=== PATIENT | male | born 1955 | race Caucasian/White ===

== ENCOUNTER 2019-08-19 19:44 | Emergency (ER) | payer MEDICAID ==
[~2019-08-19] VITALS: Ht 177.8 cm; Wt 77.1 kg
[~2019-08-19 19:44] MED LIST: IBUPROFEN600 M1 ORAL; VIBRAMYCIN100 MG ORAL
[2019-08-19 20:04] VITALS: BP 135/72
[2019-08-19] MEDS ORDERED: Morphine Sulfate 4mg/ml Inj (IV USE ONLY) IVP ONE (20:30)
[2019-08-19] MEDS ORDERED: Ketorolac 30mg Inj IV ONE (20:30)
[2019-08-19 21:20] LABS: BASOPHILS % (AUTO) 1.5 % (0.0-2.0); EOSINOPHILS % (AUTO) 1.7 % (0.0-3.0); HEMATOCRIT 39.5 % (42.0-52.0); HEMOGLOBIN 13.2 G/DL (14.2-18.0); LYMPHOCYTES % (AUTO) 20.3 % (20.0-45.0); MEAN CORPUSCULAR VOLUME 88 FL (80-99); NEUTROPHILS % (AUTO) 66.5 % (45.0-75.0); PLATELET COUNT 299 K/UL (150-450); RED BLOOD COUNT 4.48 M/UL (4.70-6.10); RED CELL DISTRIBUTION WIDTH 12.2 % (11.6-14.8); WHITE BLOOD COUNT 7.9 K/UL (4.8-10.8)
[2019-08-19 21:31] LABS: ANION GAP 8 mmol/L (5-15); BLOOD UREA NITROGEN 17 mg/dL (7-18); CALCIUM 8.2 MG/DL (8.5-10.1); CARBON DIOXIDE 28 MMOL/L (21-32); CHLORIDE 105 MMOL/L (98-107); CREATININE 0.9 MG/DL (0.55-1.30); POTASSIUM 3.5 MMOL/L (3.5-5.1); SODIUM 141 MMOL/L (136-145)
[2019-08-19 21:36] LABS: ALANINE AMINOTRANSFERASE 40 U/L (12-78); ALBUMIN 3.3 G/DL (3.4-5.0); ALBUMIN/GLOBULIN RATIO 1.1 (1.0-2.7); ALKALINE PHOSPHATASE 72 U/L (46-116); ASPARTATE AMINO TRANSFERASE 23 U/L (15-37); BILIRUBIN,TOTAL 0.3 MG/DL (0.2-1.0)
--- NOTE | 2019-08-19 21:51 | Diagnostic Imaging Report ---
CT lumbar spine History: Pain Technique: Axial CT of the lumbar spine with coronal, sagittal reformatted images. CTDI is 7.7 mGy and DLP is 287.4 mGy-cm. Technique more: One or more of the following dose reduction techniques were used: automated exposure control, adjustment of the mA and/or kV according to patient size, use of iterative reconstruction technique. Comparison: None Findings: Soft tissues: Visualized lung bases are clear. No other focal findings. Posterior paraspinal soft tissues are unremarkable. Canal size: Congenitally average Alignment: Normal vertebral body height. 3 mm anterior listhesis L5 on S1 with bilateral pars interarticularis defects. T11-T12, T12-L1: Mild calcification of the discs. Spinal canal, neural foramina are patent. L1-2: Normal disc height. Spinal canal, neural foramina are patent. L2-3: Mild bilateral facet arthropathy. Spinal canal is patent. Mild bilateral neural foramina stenosis. L3-4: Mild to moderate loss of disc height. Mild disc calcification. Spinal canal is patent. Mild bilateral neural foramina stenosis. L4-5: Disc desiccation. 3 mm annular disc bulge. Mild facet arthropathy. Spinal canal is mildly narrowed. There is moderately severe left and right neural foraminal stenosis. L5-S1: 3 mm anterior listhesis L5 and S1 with bilateral pars interarticularis defect. Superior uncovering of the disc and left greater than right lateral disc bulges measuring up to 5 mm. There is severe left and moderately severe right neural foramina stenosis. Spinal canal is patent. Impression: 1. Multilevel facet arthropathy. 2. At L4-5, moderately severe bilateral neural foramina stenosis. 3. At L5-S1, grade 1 anterior listhesis of L5 and S1 measuring 3 mm with bilateral pars interarticularis defect. Left greater than right 5 mm disc protrusions. Severe left and moderately severe right neural foraminal stenosis
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
[2019-08-20] VITALS: BP 127/70
[2019-08-20 03:45] VITALS: BP 132/68
== END 2019-08-20 03:05 | disposition short-term general hospital (02) ==
LOC: EMR 20:15
DX: M54.9 Dorsalgia, unspecified (principal); M54.2 Cervicalgia; E11.9 Type 2 diabetes mellitus without complications; M48.061 Spinal stenosis, lumbar region without neurogenic claudication
CPT/HCPCS: 36415; 72131; 80053; 85025; 96361; 96374; 96375; J1885; J2270; J7030; U0002; Z7502; 99284

== ENCOUNTER 2019-08-27 18:46 | Emergency (ER) | payer MEDICAID ==
[~2019-08-27] VITALS: Ht 175.3 cm; Wt 72.6 kg
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
[2019-08-27] MEDS ORDERED: Ketorolac 30mg Inj IM ONE (19:00)
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
--- NOTE | 2019-08-27 19:12 | NUR ---
HAND-OFF: Report given to Katia.
[2019-08-27 19:25] VITALS: BP 139/75
--- NOTE | 2019-08-27 19:39 | Diagnostic Imaging Report ---
EXAM: CT Cervical Spine Without Intravenous Contrast CLINICAL HISTORY: Injury. Neck pain. TECHNIQUE: Axial computed tomography images of the cervical spine without intravenous contrast. CTDI is 6.4 mGy and DLP is 153.5 mGy-cm. One or more of the following dose reduction techniques were used: automated exposure control, adjustment of the mA and/or kV according to patient size, use of iterative reconstruction technique. COMPARISON: 08/19/2019. FINDINGS: Vertebrae: There is straightening and reversal of the curvature of the cervical spine suggestive of muscle spasm. Gentle levoscoliosis of the cervical spine. There is a normal relationship of C1 and C2. No acute fracture. Discs/spinal canal/neural foramina: Moderate to severe degenerative disc disease is noted. Transaxial images of the cervical spine revealed minimal multilevel disc osteophyte complexes and posterior facet hypertrophy. No spinal canal stenosis. Soft tissues: Unremarkable. Lung apices: Mild COPD at the lung apices. Other findings: Spinous processes are unremarkable. IMPRESSION: 1. Degenerative disc disease. 2. No acute injury to the cervical spine is noted.
[2019-08-27] MEDS ORDERED: NAPROXEN500 M2 ORAL (19:42)
[2019-08-27 20:22] VITALS: BP 139/75
--- NOTE | 2019-08-27 20:22 | NUR ---
ER DISCHARGE NOTE: Patient has been cleared for discharge by ERMD. Patient was given discharge instructions and provided with a nicotine patch, 2 sandwiches, two juices, pants, shirt, socks, sweatshirt and shoes prior to departure. Patient verbalized understanding of discharge instructions. 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 Patient was in stable condition upon departure ambulating with the use of a personal cane.
== END 2019-08-27 20:23 | disposition home or self-care (01) ==
LOC: EDBD 18:46 → EMR 19:23
DX: S16.1XXA Strain of muscle, fascia and tendon at neck level, initial encounter (principal); M50.30 Other cervical disc degeneration, unspecified cervical region; J44.9 Chronic obstructive pulmonary disease, unspecified; Z88.0 Allergy status to penicillin; R45.1 Restlessness and agitation; E11.9 Type 2 diabetes mellitus without complications; Y92.9 Unspecified place or not applicable; Y04.2XXA Assault by strike against or bumped into by another person, initial encounter
CPT/HCPCS: 72125; 96372; J1885; Z7502; 99284